=== PATIENT | female | born 1995 | race African-American/Black ===

== ENCOUNTER 2020-06-26 20:41 | Emergency (ER) | payer OTHER ==
[2020-06-26 21:36] LABS: Bilirubin Neg (Negative); Blood, Urine 250 (Negative); Clarity Cloudy (Clear); Glucose, Urine (Dipstick) Normal (Negative); Ketone, Urine Negative (Negative); Leukocyte 25 (Negative); Nitrite Negative (Negative); Protein, Urine (Dipstick) 30 mg/dl (Neg-Trace); Specific Gravity, Urine 1.015 (1.002-1.036)
[2020-06-26 21:37] LABS: Pregnancy Test - Urine (BHCG) Negative (Negative)
[2020-06-26 21:38] LABS: Pregu Control Background? CLEAR/WHITE (CLR/WHITE); Pregu Control Bar Appear? YES (CONTROL BAR); Specific Gravity 1.015 (1.002-1.036)
[2020-06-26 21:43] LABS: RBC/HPF Greater than 50 HPF (0-3)
[2020-06-26 21:44] LABS: Bacteria/HPF None Seen HPF (None Seen); WBC/HPF 0-3 HPF (0-3)
[2020-06-26 22:53] LABS: #Eosinphils 0.1 10x3/uL (0.0-0.5); #Monocytes 0.8 10x3/uL (0.0-1.1); #Neutrophils 4.7 10x3/uL (1.5-8.4); %Basophils 0.5 % (0.0-2.0); %Eosinophils 1.1 % (0.0-6.0); %Lymphocytes 31.4 % (18.0-47.0); %Neutrophils 56.6 % (40.0-75.0); Hemoglobin 13.5 g/dL (12.0-15.5); Mean Corpuscular HGB CONC 32.5 g/dL (32.0-36.0); Mean Corpuscular Hemoglobin 30.5 pg (27.0-33.0); Mean Corpuscular Volume 93.7 fl (81.6-98.3); Mean Platelet Volume 9.9 fl (7.4-10.4); Platelet Count 350 10x3/uL (150-450); RBC Distribution Width 12.4 % (11.5-14.5); Red Blood Cell (RBC) Count 4.43 10x6/uL (3.90-5.03); White Blood Cell (WBC) Count 8.2 10x3/uL (3.5-10.5)
[2020-06-26 23:22] LABS: ALT (SGPT) 12 U/L (8-55); AST (SGOT) 14 U/L (5-34); Albumin 4.4 g/dL (3.5-5.0); Alkaline Phosphatase 78 U/L (40-110); Anion Gap 13 mmol/L (10-20); BUN (Urea Nitrogen) 10 mg/dL (7.0-18.7); Bilirubin, Total 0.3 mg/dL (0.2-1.2); Calc. Creatinine Clearance 0 mL/min (70-130); Calcium 9.4 mg/dL (7.8-10.44); Carbon Dioxide 24 mmol/L (22-29); Chloride 107 mmol/L (98-107); Glucose 94 mg/dL (70-105); Potassium 3.6 mmol/L (3.5-5.1); Protein, Total 7.4 g/dL (6.0-8.3); Sodium 140 mmol/L (136-145)
== END 2020-06-26 23:37 | disposition home or self-care (01) ==
LOC: CSHERS 20:41
DX: O02.1 Missed abortion (principal)
CPT/HCPCS: 36415; 76856; 80053; 81003; 81015; 81025; 84702; 85025; 86900; 86901

== ENCOUNTER 2021-09-07 23:17 | Inpatient (IN) | payer OTHER ==
[2021-09-07 23:40] VITALS: BMI 30.9
[2021-09-07] MEDS ORDERED: Lactated Ringer's 1,000 ML IV SCH (23:45)
[2021-09-07] MEDS ORDERED: hydrALAZINE 20 MG/ML VIAL SLOW IVP PRN (23:51)
[2021-09-07] MEDS ORDERED: Ondansetron PF 4 MG/2 ML Vial IVP PRN (23:54)
[2021-09-08] MEDS ORDERED: Butorphanol Tartrate 1 MG/ML VIAL SLOW IVP PRN ×2 (00:09→00:23)
[2021-09-08] MEDS ORDERED: Promethazine HCl 12.5 MG in Sodium Chloride 0.9% 50 ML IVPB PRN (00:10)
[2021-09-08] MEDS ORDERED: hydrALAZINE 20 MG/ML VIAL SLOW IVP PRN ×2 (00:23→04:41)
[2021-09-08] MEDS ORDERED: Promethazine HCl 25 MG/ML VIAL IM PRN ×3 (00:23→04:41)
[2021-09-08] MEDS ORDERED: Misoprostol 200 MCG TAB PR PRN (00:23)
[2021-09-08] MEDS ORDERED: Diphenoxylate HCl/Atropine Tablet PO PRN (00:23)
[2021-09-08] MEDS ORDERED: Methylergonovine 0.2 MG/ML VIAL IM PRN (00:23)
[2021-09-08] MEDS ORDERED: Carboprost 250 MCG/ML AMP IM PRN (00:23)
[2021-09-08] MEDS ORDERED: Ondansetron PF 4 MG/2 ML Vial IVP PRN ×3 (00:23→04:41)
[2021-09-08] MEDS ORDERED: Lidocaine 1% (PF) 30 ML VIAL SC PRN (00:23)
[2021-09-08] MEDS ORDERED: Lactated Ringer's 1,000 ML IV SCH (00:30)
[2021-09-08 00:41] LABS: Hemoglobin 11.8 g/dL (12.0-15.5); Mean Corpuscular HGB CONC 33.2 g/dL (32.0-36.0); Mean Corpuscular Hemoglobin 29.8 pg (27.0-33.0); Mean Corpuscular Volume 89.6 fl (81.6-98.3); Platelet Count 290 10x3/uL (150-450); RBC Distribution Width 13.3 % (11.5-14.5); Red Blood Cell (RBC) Count 3.96 10x6/uL (3.90-5.03); White Blood Cell (WBC) Count 15.3 10x3/uL (3.5-10.5)
[2021-09-08] MEDS ORDERED: Fentanyl 2 mcg/Bup 0.1% Cadd 100 ML ONE (00:56)
[2021-09-08 01:10] LABS: Hep B Surf Ag Non-Reactive S/CO (NonReactive)
[2021-09-08 01:12] LABS: Syphilis Antibody Nonreactive (Nonreactive); Syphilis Antibody Index 0.05 S/CO (<1.00 Non-Reactive)
[2021-09-08 01:23] LABS: HBSAg Index 0.18 S/CO (0-0.99)
[2021-09-08] MEDS ORDERED: Moisturizing Cream (Eucerin) 113 GM JAR TOP PRN (02:02)
[2021-09-08] MEDS ORDERED: Lactated Ringer's 500 ML IV PRN (02:02)
[2021-09-08] MEDS ORDERED: Naloxone HCl 0.4 mg/ml Vial IVP PRN ×2 (02:02)
[2021-09-08] MEDS ORDERED: ePHEDrine Sulfate 50 MG/10 ML VIAL SLOW IVP PRN (02:02)
[2021-09-08] MEDS ORDERED: diphenhydrAMINE 50 MG/ML VIAL IVP PRN (02:02)
[2021-09-08] MEDS ORDERED: Acetaminophen 325 MG TAB PO PRN (02:02)
[2021-09-08] MEDS ORDERED: Fentanyl 2 mcg/Bupivacaine 0.1% Cassette 100 ML EPIDURAL SCH (02:15)
[2021-09-08] MEDS ORDERED: Communication Order-Pharmacy FS SCH (02:15)
[2021-09-08 02:58] LABS: SARS-CoV-2 NAA Rapid Test Not Detected (NotDetected)
[2021-09-08] MEDS ORDERED: Erythromycin Base 0.5% Oint 1 GM TUBE ONE (04:24)
[2021-09-08] MEDS ORDERED: Phytonadione Neonatal 1 MG/0.5 ML AMP ONE (04:24)
[2021-09-08] MEDS ORDERED: Hepatitis B Vaccine 10 MCG/0.5 ML SYR ONE (04:24)
[2021-09-08] MEDS: NS w/ Oxytocin 30 units 500 ML IV SCH ×2 (04:30→04:41)
[2021-09-08] MEDS ORDERED: Benzocaine-Menthol 82.5 ML CAN TOP PRN (04:41)
[2021-09-08] MEDS ORDERED: Milk Of Magnesia 30 ML UDCUP PO PRN (04:41)
[2021-09-08] MEDS ORDERED: diphenhydrAMINE 25 MG CAP PO PRN (04:41)
[2021-09-08] MEDS ORDERED: Boostrix 0.5 ML (Tdap) VIAL IM ONE (04:41)
[2021-09-08] MEDS ORDERED: NS w/ Oxytocin 30 units 500 ML IV SCH (04:41)
[2021-09-08] MEDS ORDERED: Bisacodyl 10 MG SUPP PR PRN (04:41)
[2021-09-08] MEDS ORDERED: Lanolin Ointment 7 GM TUBE TOP PRN (04:41)
[2021-09-08] MEDS: Ibuprofen 800 MG TAB PO SCH ×3 (04:52→21:41)
[2021-09-08] MEDS ORDERED: Bupivacaine HCl 0.5%/Epinephrine 1:200,000/PF 30 ml Vial ONE (06:00)
[2021-09-08] MEDS: Docusate 100 MG CAP PO SCH ×2 (09:38→21:41)
[2021-09-08] MEDS: Prenatal Vitamin 1 TAB PO SCH (09:38)
[2021-09-08] MEDS: HYDROcodone/Acetaminophen 5/325 mg Tablet PO PRN ×3 (09:38→21:42)
[2021-09-08] MEDS: Ferrous Sulfate 325 MG TAB PO SCH ×2 (09:39→17:10)
[2021-09-09] MEDS: HYDROcodone/Acetaminophen 5/325 mg Tablet PO PRN ×2 (03:44→11:37)
[2021-09-09] MEDS: Ibuprofen 800 MG TAB PO SCH ×2 (05:29→14:18)
[2021-09-09 07:49] VITALS: BP 107/55; TEMP 98.4
[2021-09-09] MEDS: Docusate 100 MG CAP PO SCH (08:25)
[2021-09-09] MEDS: Ferrous Sulfate 325 MG TAB PO SCH ×2 (08:25→15:55)
[2021-09-09] MEDS: Prenatal Vitamin 1 TAB PO SCH (08:25)
== END 2021-09-09 17:05 | disposition home or self-care (01) | DRG 807 ==
LOC: CSHLD/OP 23:17 → CSHLD 09-08 03:27 → CSHPED 09-08 06:05
PROVIDERS: ADMIT Family Medicine; ATTEND Family Medicine
PROC: 10E0XZZ Delivery of Products of Conception, External Approach (ICD-10-PCS; principal; 2021-09-08)
DX: O42.02 Full-term premature rupture of membranes, onset of labor within 24 hours of rupture (principal); Z37.0 Single live birth; Z20.822 Contact with and (suspected) exposure to COVID-19; Z3A.38 38 weeks gestation of pregnancy; O99.52 Diseases of the respiratory system complicating childbirth; J45.909 Unspecified asthma, uncomplicated
CPT/HCPCS: 51702; 85027; 86780; 86850; 86900; 86901; 87340; 88307; 99285; J0595; J2405; J2590; J7120; U0002

== ENCOUNTER 2024-09-25 18:49 | Emergency (ER) | payer MEDICAID, SELFPAY ==
[2024-09-25 20:47] LABS: #Basophils 0.03 10x3/uL (0.0-0.2); #Eosinophils Less than 0.03 10x3/uL (0.0-0.5); #Monocytes 0.24 10x3/uL (0.0-1.1); #Neutrophils 10.10 10x3/uL (1.5-8.4); %Basophils 0.3 % (0.0-2.0); %Eosinophils 0.0 % (0.0-6.0); %Lymphocytes 6.9 % (18.0-47.0); %Monocytes 2.1 % (0.0-10.0); %Neutrophils 89.9 % (40.0-75.0); Hematocrit 42.2 % (34.9-44.5); Hemoglobin 13.2 g/dL (12.0-15.5); Mean Corpuscular Hemoglobin 26.2 pg (27.0-33.0); Mean Corpuscular Volume 83.7 fL (81.6-98.3); Platelet Count 401 10x3/uL (150-450); Red Blood Cell (RBC) Count 5.04 10x6/uL (3.90-5.03); White Blood Cell (WBC) Count 11.24 10x3/uL (3.5-10.5)
[2024-09-25 20:51] LABS: ALT (SGPT) 14 U/L (Less than 34); AST (SGOT) 18 U/L (11-34); Albumin 5.0 g/dL (3.1-4.5); Alkaline Phosphatase 84 U/L (40-110); Anion Gap 17 mmol/L (10-20); BUN (Urea Nitrogen) 9 mg/dL (7.0-18.7); Bilirubin, Total 0.5 mg/dL (0.3-1.2); Calc. Creatinine Clearance 0 mL/min (70-130); Calcium 10.1 mg/dL (7.8-10.44); Carbon Dioxide 19 mmol/L (22-29); Chloride 108 mmol/L (98-107); Globulin 3.5 g/dL (2.4-3.5); Glucose 110 mg/dL (70-105); Potassium 3.7 mmol/L (3.5-5.1); Sodium 140 mmol/L (136-145)
[2024-09-25 20:54] LABS: Troponin I Less than 0.010 ng/mL (< 0.028)
[2024-09-25] MEDS ORDERED: Ketorolac Tromethamine 30 MG (1 mL) VIAL ONE (21:03)
[2024-09-25] MEDS ORDERED: Ondansetron PF 4 MG/2 ML Vial ONE (21:03)
[2024-09-25 21:39] LABS: BHCG - Serum Negative (NEGATIVE); Pregs Control Background? CLEAR/WHITE (CLR/WHITE); Pregs Control Bar Appear? YES (CONTROL BAR)
== END 2024-09-26 01:07 | disposition home or self-care (01) ==
LOC: CSHERS 18:49
DX: R10.9 Unspecified abdominal pain (principal); R11.2 Nausea with vomiting, unspecified; Z55.6 Problems related to health literacy
CPT/HCPCS: 36415; 71046; 80053; 84484; 84703; 85025; 87400; 87426; 93005; 96372; 96374; 96375; J1630; J1885; J2405